=== PATIENT | female | born 2000 | race Hispanic/Latino ===

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

== ENCOUNTER 2021-11-18 00:15 | Emergency (ER) | payer MEDICAID ==
[~2021-11-18] VITALS: Ht 165.1 cm; Wt 52.0 kg
[2021-11-18 00:19] VITALS: BP 119/77
[2021-11-18 00:30] VITALS: BP 117/76
[2021-11-18 00:45] VITALS: BP 121/75
[2021-11-18 01:00] VITALS: BP 112/75
[2021-11-18 01:15] VITALS: BP 98/61
[2021-11-18 01:18] VITALS: BP 98/61
== END 2021-11-18 01:38 | disposition home or self-care (01) ==
LOC: ED 00:15
DX: S01.412A Laceration without foreign body of left cheek and temporomandibular area, initial encounter (principal); S01.112A Laceration without foreign body of left eyelid and periocular area, initial encounter; Y00.XXXA Assault by blunt object, initial encounter

== ENCOUNTER 2022-06-22 01:24 | Emergency (ER) | payer MEDICAID ==
[2022-06-22] VITALS (8 sets, daily range): BP systolic 103–123; BP diastolic 61–82
[~2022-06-22] VITALS: Ht 165.1 cm; Wt 53.6 kg
[2022-06-22 03:23] LABS: BASO% 0.2 % (0-3); EOS% 0.5 % (0-8); HEMATOCRIT 41.2 % (37.0-47.0); HEMOGLOBIN 13.5 g/dl (12.0-16.0); IMMATURE GRANULOCYTES 0.3 % (0.0-5.0); LYMPH% 19.8 % (15-41); MEAN CELL VOLUME 93.6 fL CALC (80.0-100.0); MEAN CORPUSCULAR HGB 30.7 pG CALC (26.0-32.0); MEAN CORPUSCULAR HGB CONC 32.8 g/dL CAL (32.0-36.0); MONO% 6.8 % (2-13); NEUT# 6.27 thou/uL (2.00-7.15); NEUT% 72.4 % (42-76); RED BLOOD COUNT 4.4 mill/uL (4.20-5.60); RED CELL DISTRI WIDTH 13.1 % (11.5-15.5)
[2022-06-22 03:47] LABS: HCG SERUM/URINE (NEG/POS) NEGATIVE (NEGATIVE)
[2022-06-22 03:49] LABS: ALBUMIN 4.9 g/dL (3.2-5.0); ALKALINE PHOSPHATASE 80 u/l (38-126); ANION GAP 16 (6-22 (CALC)); BILIRUBIN, TOTAL 0.6 mg/dL (0.02-1.3); BUN 12 mg/dL (7-17); BUN/CREATININE RATIO 17 (12-20 (CALC)); CARBON DIOXIDE 21 mmol/l (22-30); CHLORIDE 107 mmol/l (95-108); CREATININE 0.7 mg/dL (0.5-1.0); GFR FOR AFR.AMER. > 60 ML/MIN (>=60 (CALC)); GFR OTHER RACES > 60 ML/MIN (>=60 (CALC)); POTASSIUM 3.8 mmol/l (3.5-5.1); SGOT/AST 31 u/l (14-36); SODIUM 139 mmol/l (137-146)
[2022-06-22 04:14] LABS: URINE BILIRUBIN - DIPSTICK NEGATIVE (NEGATIVE); URINE BLOOD DIPSTICK MODERATE (NEGATIVE); URINE COLOR YELLOW; URINE GLUCOSE - DIPSTICK NEGATIVE (NEGATIVE); URINE KETONE NEGATIVE (NEGATIVE); URINE PROTEIN - DIPSTICK NEGATIVE (NEG-TRACE); URINE SPECIFIC GRAVITY 1.015; URINE UROBILINOGEN - DIPSTICK 0.2 E.U./dL (0.2)
[2022-06-22 04:22] LABS: URINE LEUK ESTERASE NEGATIVE (NEGATIVE); URINE NITRITE - DIPSTICK NEGATIVE (Negative)
[2022-06-22 04:25] LABS: URINE BACTERIA FEW hpf; URINE EPITHELIAL CELLS FEW EPI/hpf (0-FEW); URINE WBC 0-2 WBC/hpf (0-5)
[2022-06-22] MEDS ORDERED: ONDANSETRON4 MG PO (04:29)
[2022-06-22] MEDS ORDERED: MIRALAX17 GM PO (06:00)
== END 2022-06-22 06:17 | disposition home or self-care (01) ==
LOC: ED 01:24
PROVIDERS: Emergency Medicine
DX: K59.00 Constipation, unspecified (principal); R53.1 Weakness; R31.9 Hematuria, unspecified
CPT/HCPCS: Q9967